=== PATIENT | male | born 1940 | race African-American/Black ===

== ENCOUNTER 2018-12-27 05:21 | Day surgery (SDC) | payer OTHER ==
[~2018-12-27] VITALS: Ht 172.7 cm; Wt 65.8 kg
[2018-12-27 06:12] LABS: BASOPHILS 0.5 % (0-2); EOSINOPHILS 6.9 % (0-7); HEMATOCRIT 34.7 % (42.0-54.0); HEMOGLOBIN 11.8 g/dL (13.5-17.5); IMMATURE GRANULOCYTES 0.2 % (0-5); LYMPHOCYTES 24.3 % (15-50); MCH 24.5 pg (26.0-34.0); MEAN PLATELET VOLUME 9.3 fL (7.4-10.4); MONOCYTES 11.4 % (2-11); NEUTROPHILS 56.7 % (40-80); PLATELET COUNT 278 10x3/uL (130-400); RBC 4.82 10x6/uL (4.20-6.10); RDW 14.9 % (11.5-14.5); WBC 5.6 10x3/uL (4.8-10.8)
[2018-12-27 06:30] LABS: ANION GAP 12.5 mmol/L (8-16); CALCIUM 8.3 mg/dL (8.5-10.1); CARBON DIOXIDE 22.1 mmol/L (21.0-32.0); CREATININE - SERUM 1.8 mg/dL (0.6-1.3); POTASSIUM - SERUM 4.6 mmol/L (3.5-5.1)
[2018-12-27] MEDS ORDERED: XOPENEX HFA15 GM INH (07:40)
[2018-12-27 07:41] VITALS: BP 110/66; Ht 172.7 cm; Wt 65.8 kg
--- NOTE | 2018-12-27 15:34 | NUR ---
1500 PT FINISH EATING. WARM BLANKET PROVIDED AND ASSISTED WITH GETTING DRESSED. DIAPER PUT ON PT. IV REMOVED. ATE WELL.
--- NOTE | 2019-01-03 08:39 | OP ---
PATIENT NAME: ETHAN CHEN MEDICAL RECORD: [id number] :38 LOCATION:D.[facility] ADMISSION DATE: SURGEON: LEX FERGUSON MD DATE OF OPERATION: 12/27/2018 SURGEON: Lex Ferguson MD ANESTHESIA: General anesthesia by Nish Mojica CRNA. DIAGNOSES: Elevated PSA 13.7 on 10/07/2018, obstructive hypertrophy with urinary retention. PROCEDURES: 1. Transrectal ultrasound and prostate biopsy. 2. Transurethral resection of the prostate. FINDINGS: On transrectal ultrasound 51 gram prostate with intraprostatic hypoechoic areas. Findings on cystoscopy, obstructive lateral lobes and a large median lobe. Heavily trabeculated bladder with cellules and diverticula. No bladder tumors. Ureteral orifices could not be seen due to the median lobe. SPECIMENS: 1. Prostate biopsy cores. 2. TURP. BLOOD LOSS: Difficult to estimate. CLINICAL HISTORY: This is an 78-year-old male prisoner who is in chronic urinary retention. He has an indwelling Ashton catheter. His PSA was found to be elevated at 13.7. He is -[place]. He comes today to have the prostate biopsied and to have the urinary retention dealt with the TURP. He was given Ancef section hand to the OR. DESCRIPTION OF PROCEDURE: The patient was given induction of general anesthesia in supine position. He was then placed into the lithotomy position and prepped and draped. The transrectal ultrasound probe was introduced. Prostate size measurements were obtained and the prostate size was 51 grams. Sextant biopsies were obtained with at least 3 cores from each sextant. Once all the specimens were obtained, this part of the procedure was terminated. On digital rectal examination, he does not have any palpable nodule. He was then reprepped and redraped. We then introduced the 26-Malagasy resectoscope with 24-Malagasy resection loop. Normal saline was used for irrigation and we used bipolar cautery. I started taking down the median lobe and then the lateral lobes down to the verumontanum. I primarily focused on the left lateral lobe, although some of the anterior fibromuscular stroma and the right lateral lobe was also resected down. On the left side, I got down to the capsule. On the right side, I did not attempt to get down to the capsule as I wanted a channel that was sufficiently wide for the patient to void through. Ellik evacuators were used to remove the prostatic chips from the bladder. Once we had sufficiently wide prostatic urethra channel. I switched to the button electrode and the button electrode was used to finish off the resection and provide coagulation at the same time. At the end of the resection, the drainage from the bladder is light pink in color. No arterial bleeding is seen at all. One final run with the Ellik evacuator revealed no further prostatic chips in the bladder. A look with the scope also confirmed that there were no further chips in the bladder. A OPERATIVE REPORT [id number] ETHAN CHEN 24-Malagasy 3-way Ashton catheter was then inserted into the bladder. The balloon was inflated with 30 cc of sterile water. The inflow port was plugged with a catheter plug. The catheter was put to bag drainage. [facility]. The catheter can be removed in 1 week's time. TRANSINT:[id number] Voice Confirmation ID: [id number] DOCUMENT ID: [id number] LEX FERGUSON MD at 0839 CC: [id number] DICTATION DATE: 12/27/18 1307 LOG DECKMAN: 12/27/18 1349 [facility] 12/27/18 [facility] [address] [place] [address]
== END 2018-12-27 15:20 ==
LOC: D.OPS 05:21
PROVIDERS: Anesthesiology; ATTEND Urology
DX: N40.1 Benign prostatic hyperplasia with lower urinary tract symptoms (principal); R97.20 Elevated prostate specific antigen [PSA]; N13.8 Other obstructive and reflux uropathy; R33.8 Other retention of urine

== ENCOUNTER 2019-07-11 06:31 | Day surgery (SDC) | payer OTHER ==
[~2019-07-11] VITALS: Ht 172.7 cm; Wt 63.6 kg
--- NOTE | ~2019-07-11 | OP ---
PATIENT NAME: ETHAN CHEN MEDICAL RECORD: [id number] :38 LOCATION:D.[facility] ADMISSION DATE: SURGEON: LEX BUTCHER MD DATE OF OPERATION: 07/11/2019 PREOPERATIVE DIAGNOSIS: History of esophageal mass. POSTOPERATIVE DIAGNOSES: History of esophageal mass with either severe distal esophagitis or Dewey's esophagus or a mass. PROCEDURES: Esophagogastroduodenoscopy with antral and distal esophageal biopsies. SURGEON: Lex Butcher MD GED PREPARATION TEACHER: None. BLOOD LOSS: Minimal. ANESTHESIA: IV sedation. COMPLICATIONS: None. The risks, possible complications and alternatives to the procedure were explained to the patient. He elects to proceed. ENDOSCOPIC COURSE: The patient was conveyed to the endoscopy suite electively on 07/11/2019. IV sedation was induced by the anesthesia staff. A bite block was inserted. A gastroscope was inserted into the mouth. It was advanced easily into the hypopharynx. The esophagus was easily intubated as were the stomach and duodenum. Upon withdrawal, retroflexed and angulus views were obtained. Antral biopsies were obtained to rule out H. pylori. I withdrew into the distal esophagus. Distal esophageal biopsies were obtained in 4 quadrants. I slowly withdrew the endoscope. The endoscope was withdrawn under direct vision. We will be looking out for the patient's pathology results. At that time, I will need to communicate with the patient's primary care physician, Dr. Gallego. TRANSINT:[id number] Voice Confirmation ID: [id number] DOCUMENT ID: [id number] LEX BUTCHER MD CC: KYLEE GALLEGO MD [id number] DICTATION DATE: 07/11/19 1141 ASSOCIATE CHIEF NURSE: 07/11/19 1210 [facility] [address] [place] [id number]
--- NOTE | ~2019-07-11 | HP ---
PATIENT: ETHAN CHEN MEDICAL RECORD: [id number] ACCOUNT: [id number] [facility] : 38 ADMISSION DATE: 07/11/19 PCP: No PCP HISTORY AND PHYSICAL EXAMINATION HISTORY: The patient is here for an esophageal mass. The patient's primary care physician is Berny Gallego at the [facility]. He reportedly had a mass-like thickening of the gastric fundus and cardia, measuring up to 3 cm that is hypermetabolic concerning for a gastric malignancy per PET scan on 11/17/2018. I performed EGD on 01/21/2019 with negative biopsies, but because the very worrisome esophageal mass, I wanted to get more biopsies if they were negative. The patient is agreeable. 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 Reportedly, the patient had previously refused to have another EGD. The patient is now agreeable to another EGD. PAST MEDICAL AND SURGICAL HISTORY: History of tuberculosis, gastroesophageal reflux, hypertension. SOCIAL HISTORY: Nonsmoker. REVIEW OF SYSTEMS: Negative for CVA or seizures. Negative for diabetes or thyroid problems. HOME MEDICINES: None. ALLERGIES: No known drug allergies. PHYSICAL EXAMINATION: GENERAL: The patient does not appear acutely ill. He does not appear chronically ill. VITAL SIGNS: Reviewed. EARS: External ears appear normal. EYES: Extraocular movements are intact. NECK: Trachea midline. CHEST: No intercostal retractions. PULMONARY: Nonlabored, no stridor. IMPRESSION: History of esophageal mass. PLAN: EGD with biopsies. TRANSINT:[id number] Voice Confirmation ID: [id number] DOCUMENT ID: [id number] HISTORY AND PHYSICAL [id number] ETHAN CHEN ROBERT MD CC: [id number] DICTATION DATE: 07/11/19 1113 SCHOOL SOCIAL WORKER: 07/11/19 1201 REG [facility] [address] [place] [address]
[~2019-07-11 06:31] MED LIST: XOPENEX HFA15 GM INH
[2019-07-11 07:15] LABS: BASOPHILS 0.5 % (0-2); HEMATOCRIT 36.9 % (42.0-54.0); HEMOGLOBIN 12.2 g/dL (13.5-17.5); IMMATURE GRANULOCYTES 0.2 % (0-5); LYMPHOCYTES 22.9 % (15-50); MCH 24.5 pg (26.0-34.0); MCHC 33.1 g/dL (31.0-37.0); MCV 74.2 fL (80.0-100.0); MEAN PLATELET VOLUME 9.4 fL (7.4-10.4); NEUTROPHILS 63.4 % (40-80); PLATELET COUNT 297 10x3/uL (130-400); RBC 4.97 10x6/uL (4.20-6.10); RDW 16.3 % (11.5-14.5); WBC 6.3 10x3/uL (4.8-10.8)
[2019-07-11 07:18] VITALS: BP 103/76; Ht 172.7 cm; Wt 63.6 kg
[2019-07-11 07:22] LABS: ANION GAP 13.6 mmol/L (8-16); CALCIUM 7.9 mg/dL (8.5-10.1); CARBON DIOXIDE 21.7 mmol/L (21.0-32.0); CREATININE - SERUM 1.5 mg/dL (0.6-1.3); POTASSIUM - SERUM 4.3 mmol/L (3.5-5.1)
--- NOTE | 2019-07-11 13:02 | NUR ---
1235 IV DC'D. CATHETER TIP INTACT. PRESSURE HELD UNTIL BLEEDING CEASED. BANDAID APPLIED.
== END 2019-07-11 12:49 | disposition home or self-care (01) ==
LOC: D.OPS 06:31
PROVIDERS: Anesthesiology; ATTEND Surgery
DX: K22.8 Other specified diseases of esophagus (principal); K21.9 Gastro-esophageal reflux disease without esophagitis; I10 Essential (primary) hypertension; Z86.11 Personal history of tuberculosis